=== PATIENT | male | born 1995 | race African-American/Black ===

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

== ENCOUNTER 2017-01-29 02:29 | Emergency (ER) | payer SELFPAY ==
[2017-01-29] MEDS ORDERED: IBUPROFEN 600 MG TAB PO STA (02:56)
--- NOTE | 2017-01-29 03:00 | ED ---
Chest Pain HPI - General Chief Complaint: Chest Pain Stated Complaint: PRABHJOT, Chest Discomfort Time Seen by Provider: 01/29/17 02:34 Source: patient, RN notes reviewed, old records reviewed Mode of arrival: ambulatory Limitations: no limitations - History of Present Illness Initial Comments: This is a 22-year-old male presents emergency Department chief complaint of onset of chest pain and pain with taking a deep breath while at work today. 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 He reports that he noticed that the pain is worse whenever he attempts to take a deep breath instructed to his chest. He reports that the pain is reproducible and it is over the sternum and worse whenever he moves his arms. Denies any nausea or vomiting. He reports that when he is resting he doesn't have any discomfort within his chest or any difficulty in breathing. Patient reports his medical history includes Hodgkin' s informed which is in remission. Patient states that he's had no cough.Patient is a nonsmoker. - Related Data Previous Rx's Medication Instructions Recorded Naproxen 500 mg PO BID #20 tablet 01/29/17 Allergies Allergy/AdvReac Type Severity Reaction Status Date / Time No Known Allergies Allergy Verified 01/29/17 02:38 Review of Systems ROS Statement: Those systems with pertinent positive or pertinent negative responses have been documented in the HPI. ROS Other: All systems not noted in ROS Statement are negative. EKG Findings - EKG Comments: EKG Findings:: EKG shows sinus rhythm with questionable sinus arrhythmia. Ventricular rate of 61 bpm. MA interval 150 ms. QRS duration 92 ms. QT QTc is 4:30/436. T wave depression in V3 and lead 3. Past Medical History Past Medical History: Cancer Additional Past Medical History / Comment(s): Hodgkins Lymphoma as a child History of Any Multi-Drug Resistant Organisms: None Reported Past Surgical History: No Surgical Hx Reported Past Psychological History: No Psychological Hx Reported Smoking Status: Never smoker Past Alcohol Use History: None Reported Past Drug Use History: None Reported General Exam - General Exam Comments Initial Comments: This is a well-appearing 22-year-old male. No acute distress. Limitations: no limitations General appearance: alert, in no apparent distress Head exam: Present: atraumatic, normocephalic, normal inspection Eye exam: Present: normal appearance, PERRL, EOMI. Absent: scleral icterus, conjunctival injection, periorbital swelling ENT exam: Present: normal exam, normal oropharynx, mucous membranes moist Neck exam: Present: normal inspection. Absent: tenderness, meningismus, lymphadenopathy Respiratory exam: Present: normal lung sounds bilaterally, chest wall tenderness (Sternum tenderness with palpation.) Cardiovascular Exam: Present: regular rate, normal rhythm, normal heart sounds. Absent: systolic murmur, diastolic murmur, rubs, gallop, clicks GI/Abdominal exam: Present: soft, normal bowel sounds. Absent: distended, tenderness, guarding, rebound, rigid Extremities exam: Present: normal inspection, full ROM, normal capillary refill. Absent: tenderness, pedal edema, joint swelling, calf tenderness Back exam: Present: normal inspection Neurological exam: Present: alert, oriented X3, CN II-XII intact Psychiatric exam: Present: normal affect, normal mood Skin exam: Present: warm, dry, intact, normal color. Absent: rash Course Vital Signs 01/29/17 02:35 Temperature 97.5 F L Pulse Rate 60 Respiratory 16 Rate Blood Pressure 124/70 O2 Sat by Pulse 100 Oximetry Chest Pain MDM - MDM This is a 22-year-old male chief complaint of chest pain that started while he was at work today. Reports is difficult whenever he takes a deep breath it causes chest obstruction has pain. His pain is reproducible when palpating over the sternum. He denies any pain or difficulty breathing while sitting and resting. Patient EKG was within normal limits. Lungs are clear to all station cardiac exam is negative for any murmurs or rubs. Patient chest x-ray is within normal history no evidence of any acute cardiopulmonary process. Patient was informed of these. Discussed that with patient's pain being reproducible is likely representing some costochondritis inflammation. Patient will be started on anti-inflammatory medicine. Given Motrin emergency department. Discussed that he should return to emergency department if any other alarming signs or symptoms occur. Given a note for work for today. Patient agrees treatment plan will comply. Return parameters were discussed. Disposition Clinical Impression: Costochondritis Disposition: HOME SELF-CARE Condition: Good Instructions: Costochondritis (ED) Additional Instructions: Patient advised to rest, apply heat or ice over the area of the chest wall that is painful. Take anti-inflammatory medicine as prescribed. Return to the emergency department if any alarming signs or symptoms occur. Prescriptions: Naproxen 500 mg PO BID #20 tablet Referrals: Oleksandr Perez MD [Primary Care Provider] - 1-2 days Time of Disposition: 03:23
--- NOTE | 2017-01-29 03:13 | XR ---
EXAMINATION TYPE: XR chest 2V DATE OF EXAM: 01/29/2017 COMPARISON: 04/28/2016 HISTORY: Chest pain TECHNIQUE: Frontal and lateral views of the chest are obtained. FINDINGS: Heart and mediastinum are normal. Lungs are clear. Diaphragm is normal. Bony thorax appear s normal. IMPRESSION: Normal chest. No change.
[2017-01-29 03:51] VITALS: BP 116/59; PULSE 65; RESP 18; TEMP 97.6
== END 2017-01-29 03:51 | disposition home or self-care (01) ==
LOC: EC 02:29
DX: M94.0 Chondrocostal junction syndrome [Tietze] (principal)
CPT/HCPCS: 71020; 93005; 99285